=== PATIENT | female | born 2000 | race Caucasian/White ===

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

== ENCOUNTER 2022-07-23 04:30 | Emergency (ER) | payer OTHER, SELFPAY ==
[~2022-07-23] VITALS: Ht 167.6 cm; Wt 105.2 kg
[2022-07-23 07:52] LABS: HCG, SERUM QUALITATIVE NEGATIVE (NEGATIVE)
[2022-07-23 09:28] VITALS: BP 124/81
== END 2022-07-23 09:36 | disposition home or self-care (01) ==
LOC: M ED 04:30
DX: S09.90XA Unspecified injury of head, initial encounter (principal); W00.0XXA Fall on same level due to ice and snow, initial encounter; Y92.524 Gas station as the place of occurrence of the external cause

== ENCOUNTER → 2024-11-12 | Outpatient (CLI) | payer OTHER ==
[~2024-11-12] MED LIST changes: +DOXY-441 PO; -DOXY-443 PO
== END ==
LOC: M PLALAB 08:56
PROVIDERS: ATTEND Advanced Practice Midwife
DX: O99.212 Obesity complicating pregnancy, second trimester (principal)

== ENCOUNTER → 2024-12-22 | Outpatient (CLI) | payer OTHER | LOC: M WHC 10:09 | PROVIDERS: ATTEND Advanced Practice Midwife | DX: O99.212 Obesity complicating pregnancy, second trimester (principal); Z3A.19 19 weeks gestation of pregnancy ==

== ENCOUNTER → 2025-01-19 | Outpatient (CLI) | payer OTHER | LOC: M WHC 10:13 | PROVIDERS: ATTEND Advanced Practice Midwife | DX: O99.212 Obesity complicating pregnancy, second trimester (principal); O32.1XX0 Maternal care for breech presentation, not applicable or unspecified; Z36.2 Encounter for other antenatal screening follow-up; Z3A.23 23 weeks gestation of pregnancy ==

== ENCOUNTER → 2025-01-29 | Outpatient (CLI) | payer OTHER | LOC: M WHC 12:46 | PROVIDERS: ATTEND Advanced Practice Midwife | DX: O99.212 Obesity complicating pregnancy, second trimester (principal) ==

== ENCOUNTER → 2025-02-09 | Outpatient (CLI) | payer OTHER ==
[2025-02-09 13:48] LABS: PLATELET COUNT, AUTOMATED 215 10^3/uL (150-450)
[2025-02-09 13:53] LABS: GLUCOSE CHALLENGE TEST 1 HOUR 122 MG/DL (LESS THAN 140)
[2025-02-09 14:18] LABS: Trichomonas vaginalis (AMP) NOT DETECTED (NEGATIVE)
[2025-02-09 14:41] LABS: GC DNA AMPLIFICATION NEGATIVE (NEGATIVE)
[2025-02-09 15:52] LABS: HIV 1&2 SCREEN NEGATIVE (NEGATIVE)
[2025-02-09 16:00] LABS: HEPATITIS C VIRUS ABY INDEX < 0.02 INDEX (<0.8)
== END ==
LOC: M PLALAB 09:52
PROVIDERS: ATTEND Nurse Practitioner Family
DX: O99.212 Obesity complicating pregnancy, second trimester (principal); Z3A.00 Weeks of gestation of pregnancy not specified

== ENCOUNTER → 2025-02-10 | Outpatient (REF) | payer OTHER | LOC: M PLALAB 13:25 | PROVIDERS: ATTEND Obstetrics & Gynecology | DX: Z53.9 Procedure and treatment not carried out, unspecified reason (principal); Z34.83 Encounter for supervision of other normal pregnancy, third trimester ==

== ENCOUNTER → 2025-02-10 | Outpatient (CLI) | payer OTHER ==
[~2025-02-10] MED LIST changes: -BACTDSTA PO; +SULF-8 PO
[2025-02-12 07:10] LABS: RUBELLA IgG FOR TORCH EVAL <0.90 index (Immune >0.99); RUBELLA IgM FOR TORCH EVAL <20.0 AU/mL (0.0-19.9)
[2025-02-12 13:41] LABS: HERPES ZOSTER, VARICELLA IgG < 1.00 S/CO (>=1.00)
[2025-02-13 13:52] LABS: CYTOMEGALOVIRUS ANTIBODY IGG < 0.60 U/mL (<0.60); CYTOMEGALOVIRUS IgM ANTIBODY < 30.00 AU/mL (<30.00)
[2025-02-15 17:52] LABS: HSV 1 IGG TYPE SPECIFIC 43.20 index (<0.90)
[2025-02-16 15:08] LABS: TOXOPLASMA IGM ANTIBODY < 8.00 AU/mL (<8.00)
[2025-02-16 22:32] LABS: HERPES ZOSTER, VARICELLA IgM <= 0.90 (<=0.90)
[2025-02-17 01:27] LABS: ANTI PARVO VIRUS LEVEL IGG 0.1 (<0.9); ANTI PARVO VIRUS LEVEL IgM 0.1 (<0.9)
== END ==
LOC: M PLALAB 13:36
PROVIDERS: ATTEND Obstetrics & Gynecology
DX: O99.212 Obesity complicating pregnancy, second trimester (principal); Z3A.26 26 weeks gestation of pregnancy; E66.9 Obesity, unspecified

== ENCOUNTER → 2025-02-24 | Outpatient (CLI) | payer OTHER ==
[~2025-02-24] MED LIST changes: +BACTDSTA PO; -SULF-8 PO
== END ==
LOC: M WHC 11:12
PROVIDERS: ATTEND Obstetrics & Gynecology
DX: O36.5930 Maternal care for other known or suspected poor fetal growth, third trimester, not applicable or unspecified (principal)

== ENCOUNTER → 2025-03-03 | Outpatient (CLI) | payer OTHER | LOC: M RAD 09:18 | PROVIDERS: ATTEND Obstetrics & Gynecology | DX: O36.5930 Maternal care for other known or suspected poor fetal growth, third trimester, not applicable or unspecified (principal); Z3A.00 Weeks of gestation of pregnancy not specified ==

== ENCOUNTER → 2025-03-11 | Outpatient (CLI) | payer OTHER | LOC: M WHC 11:33 | PROVIDERS: ATTEND Obstetrics & Gynecology | DX: O36.5930 Maternal care for other known or suspected poor fetal growth, third trimester, not applicable or unspecified (principal) ==

== ENCOUNTER → 2025-03-17 | Outpatient (CLI) | payer OTHER | LOC: M WHC 12:54 | PROVIDERS: ATTEND Obstetrics & Gynecology | DX: O36.5930 Maternal care for other known or suspected poor fetal growth, third trimester, not applicable or unspecified (principal); Z3A.00 Weeks of gestation of pregnancy not specified ==

== ENCOUNTER → 2025-03-24 | Outpatient (CLI) | payer OTHER | LOC: M WHC 12:56 | PROVIDERS: ATTEND Obstetrics & Gynecology | DX: O36.5930 Maternal care for other known or suspected poor fetal growth, third trimester, not applicable or unspecified (principal); Z3A.00 Weeks of gestation of pregnancy not specified ==

== ENCOUNTER → 2025-03-26 | Outpatient (CLI) | payer OTHER ==
[~2025-03-26] MED LIST changes: -BACTDSTA PO; +SULF-8 PO
== END ==
LOC: M RAD 12:21
PROVIDERS: ATTEND Obstetrics & Gynecology
DX: O36.5990 Maternal care for other known or suspected poor fetal growth, unspecified trimester, not applicable or unspecified (principal)

== ENCOUNTER → 2025-03-31 | Outpatient (CLI) | payer OTHER | LOC: M WHC 13:11 | PROVIDERS: ATTEND Obstetrics & Gynecology | DX: O36.5930 Maternal care for other known or suspected poor fetal growth, third trimester, not applicable or unspecified (principal) ==

== ENCOUNTER → 2025-04-07 | Outpatient (CLI) | payer OTHER | LOC: M WHC 13:07 | PROVIDERS: ATTEND Obstetrics & Gynecology | DX: O36.5930 Maternal care for other known or suspected poor fetal growth, third trimester, not applicable or unspecified (principal) ==

== ENCOUNTER → 2025-04-14 | Outpatient (CLI) | payer OTHER | LOC: M WHC 13:13 | PROVIDERS: ATTEND Obstetrics & Gynecology | DX: O36.5930 Maternal care for other known or suspected poor fetal growth, third trimester, not applicable or unspecified (principal); Z3A.00 Weeks of gestation of pregnancy not specified ==

== ENCOUNTER → 2025-04-16 | Outpatient (REF) | payer OTHER | LOC: M SFHCWAGY 15:01 | PROVIDERS: ATTEND Nurse Practitioner Family | DX: Z36.85 Encounter for antenatal screening for Streptococcus B (principal); Z3A.35 35 weeks gestation of pregnancy ==

== ENCOUNTER → 2025-04-21 | Outpatient (CLI) | payer OTHER | LOC: M WHC 13:00 | PROVIDERS: ATTEND Obstetrics & Gynecology | DX: O36.5930 Maternal care for other known or suspected poor fetal growth, third trimester, not applicable or unspecified (principal); Z3A.00 Weeks of gestation of pregnancy not specified ==

== ENCOUNTER → 2025-04-29 | Outpatient (CLI) | payer OTHER ==
[~2025-04-29] MED LIST changes: +PRENTAB9 PO
== END ==
LOC: M WHC 09:45
PROVIDERS: ATTEND Nurse Practitioner Family
DX: O36.5930 Maternal care for other known or suspected poor fetal growth, third trimester, not applicable or unspecified (principal); Z3A.35 35 weeks gestation of pregnancy

== ENCOUNTER 2025-05-01 10:10 | Outpatient (CLI) | payer OTHER ==
[~2025-05-01] VITALS: Ht 162.6 cm; Wt 125.6 kg
[2025-05-01 08:20] VITALS: BP 144/88
[2025-05-01 09:00] VITALS: BP 133/80
== END 2025-05-01 10:21 | disposition home or self-care (01) ==
LOC: M LDO 10:10 → EDSTATUS 10:30
PROVIDERS: ATTEND Advanced Practice Midwife
DX: O36.5930 Maternal care for other known or suspected poor fetal growth, third trimester, not applicable or unspecified (principal); O99.213 Obesity complicating pregnancy, third trimester; E66.01 Morbid (severe) obesity due to excess calories; Z3A.38 38 weeks gestation of pregnancy
CPT/HCPCS: 59025; G0463